=== PATIENT | female | born 1940 | race Caucasian/White ===

== ENCOUNTER 2017-06-22 16:31 | Emergency (ER) | payer OTHER, MEDICARE ==
[2017-06-22 16:38] VITALS: TEMP 98.1
--- NOTE | 2017-06-22 17:10 | CPEKG ---
Heart Rate: 79 RR Interval: 759 P-R Interval: 196 QRSD Interval: 118 QT Interval: 376 QTC Interval: 432 P [place]: 92 QRS [place]: -29 T Wave [place]: 130 EKG Severity - ABNORMAL ECG - EKG Impression: SINUS RHYTHM EKG Impression: NONSPECIFIC INTRAVENTRICULAR CONDUCTION DELAY Electronically Signed By: Michael Melo 22-Jun-2017 17:31:12
[2017-06-22 17:23] LABS: % IMMATURE GRANULYOCYTES 0.4 % (0.0-1.1); ABSOLUTE IMMATURE GRANULOCYTES 0.08 10^3/uL (0.00-0.10); ADD DIFF? NO; ADD MORPH? NO; ADD SCAN? NO; ATYPICAL LYMPHOCYTE FLAG 0 (0-99); FRAGMENT RBC FLAG 0 (0-99); HEMATOCRIT 35.1 % (38.0-47.0); HEMOGLOBIN 12.3 g/dL (12.6-16.3); LEFT SHIFT FLG 0 (0-99); LIPEMIA HEMOLYSIS FLAG 90 (0-99); MEAN CELL HEMOGLOBIN 32.3 pg (27.9-34.1); MEAN CELL VOLUME 92.1 fL (81.5-99.8); MEAN PLATELET VOLUME 9.7 fL (8.7-11.7); PLATELET CLUMPS FLAG 0 (0-99); PLATELET COUNT 328 10^3/uL (150-400); RED BLOOD CELL COUNT 3.81 10^6/uL (4.18-5.33); RED CELL DISTRIBUTION WIDTH 12.9 % (11.5-15.2)
--- NOTE | 2017-06-22 17:31 | EDPHY ---
H & P Stated Complaint: Intermittent dizziness and h/a~2 wks;gait off x 1 wk Time Seen by Provider: 06/22/17 16:52 HPI/ROS: CHIEF COMPLAINT: Intermittent headache, dizziness, gait instability HISTORY OF PRESENT ILLNESS: The patient presents to the ED with a 2 week history of intermittent headache, dizziness and gait instability. The patient reports she had similar symptoms when she experienced a small stroke over a year ago. At that point time she had had symptoms of left arm numbness which she is currently not having. The patient did stop taking her aspirin 5 days ago so that she could undergo cortisone injection in her back yesterday. The patient currently denies any acute headache, she denies any acute numbness, she denies any acute weakness. She reports she is primarily had intermittent bouts of gait instability. She denies any complaints of fever, cough or congestion. She denies any history of dysuria. The patient denies any medication changes aside from her discontinuation of aspirin. REVIEW OF SYSTEMS: A comprehensive 10 point review of systems is otherwise negative aside from elements mentioned in the history of present illness. Source: Patient Exam Limitations: No limitations - Personal History Current Tetanus Diphtheria and Acellular Pertussis (TDAP): Yes - Medical/Surgical History Hx Asthma: No Hx Chronic Respiratory Disease: No Hx Diabetes: No Hx Cardiac Disease: No Hx Renal Disease: No Hx Cirrhosis: No Hx Alcoholism: No Hx HIV/AIDS: No Hx Splenectomy or Spleen Trauma: No Other PMH: htn, head bleed secondary to trauma 2012, back injury, CVA 01/19 - Social History Smoking Status: Current every day smoker - Physical Exam Exam: General Appearance: Alert, no distress Eyes: Pupils equal and round no pallor or injection ENT, Mouth: Mucous membranes moist Respiratory: There are no retractions, lungs are clear to auscultation Cardiovascular: Regular rate and rhythm Gastrointestinal: Abdomen is soft and nontender, no masses, bowel sounds normal Neurological: Alert and oriented x4, 5/5 strength all 4 extremities, sensation intact to light touch throughout all 4 extremities, cranial nerves 2-12 intact, NIH stroke scale equals 0 Skin: Warm and dry, no rashes Musculoskeletal: Neck is supple nontender Extremities: symmetrical, full range of motion Constitutional: Initial Vital Signs Temperature (C) 36.7 C 06/22/17 16:34 Heart Rate 94 08/17/17 16:34 Respiratory Rate 18 06/22/17 16:34 Blood Pressure 169/74 H 06/22/17 16:34 O2 Sat (%) 95 06/22/17 16:34 O2 Delivery Mode Room Air Allergies/Adverse Reactions: Penicillins Allergy (Severe, Verified 06/22/17 16:39) throat closes up Home Medications: Medication Instructions Recorded Triamterene/Hydrochlorothiazid 0.5 tab PO DAILY 04/29/13 [Triamterene-Hctz 75-50 mg Tab] Aspirin [Aspirin 325 mg (*)] 325 mg PO DAILY 02/10/16 Lisinopril [Zestril 10 mg (*)] 10 mg PO DAILY #30 tab 02/11/16 buPROPion [Wellbutrin] 100 mg PO 06/22/17 levOFLOXACIN [Levaquin] 500 mg PO DAILY #7 tab 06/22/17 Medical Decision Making - Diagnostics EKG Interpretation: EKG: Complete interpretation has been separately recorded in the [employer] archive. Summary impression: Sinus rhythm Imaging Results: Imaging Impressions Brain MRI 06/22/17 17:13 Impression: Stable since February 2016. No acute infarction identified. Results called to Dr. Melo at 6:34 pm. ED Course/Re-evaluation: I reviewed the patient's past medical records including her CTA from 2016 which demonstrated no significant flow-limiting stenosis. The patient presents to the ED with a vague constellation of bilateral symptoms including headache, gait difficulty and dizziness. The patient is noted to have an NIH stroke scale of 0. The patient was taken for brain MRI which demonstrates no evidence of an acute stroke. Additional workup demonstrates leukocytosis, evidence of mild dehydration and evidence of urinary tract infection. The patient is afebrile, nontoxic well-appearing. She has no clinical evidence of septic physiology. The patient was given oral Levaquin in the emergency department. She will be discharged home with a prescription for Levaquin x7 days. Discussion: The patient presents to the ED with vague intermittent neurologic symptoms, dizziness, weakness and intermittent headache. Patient's NIH stroke scale was 0. MRI failed to confirm any evidence of an acute stroke. The patient did have evidence of urinary tract infection which certainly could be an explanation for her symptoms today. The patient will be discharged home with oral antibiotics. She is advised follow up with her primary care provider for a recheck in the week. She received should return for any progressive neurologic symptoms, fever, vomiting or other concerns. Differential Diagnosis: Differential diagnosis considered includes stroke, TIA, metabolic abnormality, urinary tract infection, medication side effect - Data Points Laboratory Results: Laboratory Results 06/22/17 17:15 06/22/17 17:15 06/22/17 06/22/17 06/22/17 19:07 17:15 17:15 WBC 19.44 10^3/uL H 10^3/uL (3.80-9.50) RBC 3.81 10^6/uL L 10^6/uL (4.18-5.33) Hgb 12.3 g/dL L g/dL (12.6-16.3) Hct 35.1 % L % (38.0-47.0) MCV 92.1 fL fL (81.5-99.8) MCH 32.3 pg pg (27.9-34.1) MCHC 35.0 g/dL g/dL (32.4-36.7) RDW 12.9 % % (11.5-15.2) Plt Count 328 10^3/uL 10^3/uL (150-400) MPV 9.7 fL fL (8.7-11.7) Neut % (Auto) 84.4 % H % (39.3-74.2) Lymph % (Auto) 10.8 % L % (15.0-45.0) [place] % (Auto) 4.2 % L % (4.5-13.0) Eos % (Auto) 0.0 % L % (0.6-7.6) Baso % (Auto) 0.2 % L % (0.3-1.7) Nucleat RBC Rel Count 0.0 % % (0.0-0.2) Absolute Neuts (auto) 16.41 10^3/uL H 10^3/uL (1.70-6.50) Absolute Lymphs (auto) 2.09 10^3/uL 10^3/uL (1.00-3.00) Absolute Monos (auto) 0.82 10^3/uL H 10^3/uL (0.30-0.80) Absolute Eos (auto) 0.00 10^3/uL L 10^3/uL (0.03-0.40) Absolute Basos (auto) 0.04 10^3/uL 10^3/uL (0.02-0.10) Absolute Nucleated RBC 0.00 10^3/uL 10^3/uL (0-0.01) Immature Gran % 0.4 % % (0.0-1.1) Immature Gran # 0.08 10^3/uL 10^3/uL (0.00-0.10) Sodium 133 mEq/L L mEq/L (134-144) Potassium 4.6 mEq/L mEq/L (3.5-5.2) Chloride 96 mEq/L L mEq/L (97-110) Carbon Dioxide 22 mEq/l mEq/l (22-31) Anion Gap 15 mEq/L mEq/L (8-16) BUN 33 mg/dL H mg/dL (7-23) Creatinine 1.2 mg/dL H mg/dL (0.6-1.0) Estimated GFR 44 Glucose 150 mg/dL H mg/dL (70-100) Calcium 10.6 mg/dL H mg/dL (8.5-10.4) Urine Color YELLOW Urine Appearance HAZY Urine pH 6.0 (5.0-7.5) Ur Specific [place] 1.009 (1.002-1.030) Urine Protein NEGATIVE (NEGATIVE) Urine Ketones NEGATIVE (NEGATIVE) Urine Blood NEGATIVE (NEGATIVE) Urine Nitrate NEGATIVE (NEGATIVE) Urine Bilirubin NEGATIVE (NEGATIVE) Urine Urobilinogen NEGATIVE EU EU (0.2-1.0) Ur Leukocyte Esterase 3+ H (NEGATIVE) Urine RBC NONE SEEN /hpf /hpf (0-3) Urine WBC 25-50 /hpf H /hpf (0-3) Ur Epithelial Cells TRACE /lpf /lpf (NONE-1+) Urine Bacteria TRACE /hpf H /hpf (NONE SEEN) Hyaline Casts 1-5 /lpf /lpf (0-1) Urine Glucose NEGATIVE (NEGATIVE) Medications Given: Discontinued Medications Sodium Chloride (Ns) 1,000 mls @ 0 mls/hr IV EDNOW ONE; Wide Open PRN Reason: Protocol Stop: 06/22/17 18:47 Last Admin: 06/22/17 19:03 Dose: 1,000 mls Departure - Departure Disposition: Home, Routine, Self-Care Clinical Impression: Headache, Urinary tract infection, Weakness Condition: Good Instructions: Urinary Tract Infection in Women (ED) Additional Instructions: 1. Your MRI demonstrates no evidence of an acute stroke. 2. You do have evidence of urinary tract infection which may be an explanation for your symptoms of headache, fatigue and intermittent dizziness. 3. Please take antibiotics as directed. Return to the emergency department for severe pain, fever, vomiting any progressive neurologic symptoms or other concerns. Referrals: Adrianna Barrow MD [Primary Care Provider] - As per Instructions Prescriptions: levOFLOXACIN [Levaquin] 500 mg PO DAILY #7 tab
[2017-06-22 17:37] LABS: ANION GAP 15 mEq/L (8-16); CALCIUM 10.6 mg/dL (8.5-10.4); CARBON DIOXIDE 22 mEq/l (22-31); CHLORIDE 96 mEq/L (97-110); CREATININE 1.2 mg/dL (0.6-1.0); GLOMERULAR FILTRATION RATE 44; GLUCOSE 150 mg/dL (70-100); POTASSIUM 4.6 mEq/L (3.5-5.2); SODIUM 133 mEq/L (134-144)
[2017-06-22] MEDS ORDERED: NS 1,000 ML IV ONE (18:46)
[2017-06-22 19:06] VITALS: BP 158/69; PULSE 73; RESP 18; O2SAT 96
[2017-06-22 19:18] LABS: BACTERIA TRACE /hpf (NONE SEEN); COLOR YELLOW; LEUKOCYTE ESTERASE,URINE 3+ (NEGATIVE); NITRITE,URINE NEGATIVE (NEGATIVE); WBC,URINE 25-50 /hpf (0-3)
[2017-06-22 19:19] LABS: RBC,URINE NONE SEEN /hpf (0-3)
== END 2017-06-22 19:43 | disposition home or self-care (01) ==
DX: R51 Headache (principal); N39.0 Urinary tract infection, site not specified; R53.1 Weakness; B96.89 Other specified bacterial agents as the cause of diseases classified elsewhere; I10 Essential (primary) hypertension; F17.200 Nicotine dependence, unspecified, uncomplicated; E86.9 Volume depletion, unspecified; Z86.73 Personal history of transient ischemic attack (TIA), and cerebral infarction without residual deficits

== ENCOUNTER → 2017-07-21 | Outpatient (CLI) | payer OTHER, MEDICARE | LOC: FIMAGING 14:15 | PROVIDERS: ATTEND Family Medicine | DX: N28.89 Other specified disorders of kidney and ureter (principal); E03.9 Hypothyroidism, unspecified; N28.1 Cyst of kidney, acquired ==

== ENCOUNTER → 2017-12-22 | Outpatient (CLI) | payer OTHER, MEDICARE | LOC: BHFA 15:00 | PROVIDERS: ATTEND Internal Medicine Cardiovascular Disease | DX: R94.31 Abnormal electrocardiogram [ECG] [EKG] (principal) ==

== ENCOUNTER → 2018-01-02 | Outpatient (CLI) | payer OTHER, MEDICARE | LOC: BHFA 08:30 | PROVIDERS: ATTEND Internal Medicine Cardiovascular Disease | DX: R94.31 Abnormal electrocardiogram [ECG] [EKG] (principal) | CPT/HCPCS: 78452; 93017; A9500; J2785 ==

== ENCOUNTER → 2018-01-08 | Outpatient (CLI) | payer OTHER, MEDICARE | LOC: BHFA 14:45 | PROVIDERS: ATTEND Internal Medicine | DX: R01.1 Cardiac murmur, unspecified (principal); I10 Essential (primary) hypertension ==

== ENCOUNTER → 2019-01-31 | Outpatient (CLI) | payer OTHER, MEDICARE | LOC: SUPIMAGING 11:22 | PROVIDERS: ATTEND Registered Nurse | DX: M79.642 Pain in left hand (principal) | CPT/HCPCS: 73130-PN ==